=== PATIENT | female | born 1950 | race Caucasian/White ===

== ENCOUNTER → 2018-04-11 | Outpatient (REF) | payer MEDICARE ==
[~2018-04-11] MED LIST: BP MED; NEXIUM40 MG PO
== END | disposition home or self-care (01) ==
LOC: STRESS 13:15 → NUCMED 13:30
PROVIDERS: ATTEND Internal Medicine
DX: I20.9 Angina pectoris, unspecified (principal); R06.02 Shortness of breath; R00.2 Palpitations; R94.31 Abnormal electrocardiogram [ECG] [EKG]
CPT/HCPCS: A9502; J2785

== ENCOUNTER → 2018-05-04 | Outpatient (REF) | payer MEDICARE ==
[2018-05-04 08:01] LABS: ACT PARTIAL THROMBO TIME 25.8 SECONDS (20.0-32.5); INTERNATIONAL NORMALIZED RATIO 0.9 RATIO (0.7-1.3); PROTHROMBIN TIME 9.8 SECONDS (9.0-12.5)
[2018-05-04 08:20] LABS: HEMATOCRIT 38.8 % (37.0-47.0); HEMOGLOBIN 12.6 g/dl (12.0-16.0); IMMATURE GRANULOCYTES 0.3 % (0.0-5.0); MEAN CORPUSCULAR HGB 28.9 pG CALC (26.0-32.0); MEAN CORPUSCULAR HGB CONC 32.5 g/L CALC (32.0-36.0); NEUT# 3.56 thou/uL (2.00-7.15); RED BLOOD COUNT 4.36 mill/uL (4.20-5.60); RED CELL DISTRI WIDTH 12.8 % (11.5-15.5)
[2018-05-04 08:40] LABS: ALBUMIN 4.1 g/dL (3.2-5.0); ALKALINE PHOSPHATASE 65 u/l (38-126); ANION GAP 11 (6-22 (CALC)); BILIRUBIN, TOTAL 0.6 mg/dL (0.0-1.4); BUN 24 mg/dL (8-23); BUN/CREATININE RATIO 35 (12-20 (CALC)); CARBON DIOXIDE 30 mmol/l (22-30); CHLORIDE 102 mmol/l (95-108); CREATININE 0.7 mg/dL (0.5-1.0); GFR > 60 ML/MIN (>=60 (CALC)); GFR FOR AFR.AMER. > 60 ML/MIN (>=60 (CALC)); POTASSIUM 4.2 mmol/l (3.5-5.1); SGOT/AST 29 u/l (9-36); SODIUM 139 mmol/l (137-146); TOTAL PROTEIN 6.9 g/dL (6.3-8.2)
== END | disposition home or self-care (01) ==
LOC: LAB 07:09
PROVIDERS: ATTEND Internal Medicine
DX: I48.2 Chronic atrial fibrillation (principal); I20.8 Other forms of angina pectoris

== ENCOUNTER 2021-08-06 07:58 | Emergency (ER) | payer MEDICARE ==
[~2021-08-06] VITALS: Ht 165.1 cm; Wt 109.7 kg
[2021-08-06] MEDS ORDERED: TRAMADOL HYDROC50 M1 PO (08:35)
[2021-08-06 08:40] LABS: HEMATOCRIT 37.7 % (37.0-47.0); HEMOGLOBIN 12.5 g/dl (12.0-16.0); IMMATURE GRANULOCYTES 0.2 % (0.0-5.0); MEAN CELL VOLUME 87.5 fL CALC (80.0-100.0); MEAN CORPUSCULAR HGB CONC 33.2 g/dL CAL (32.0-36.0); NEUT# 4.04 thou/uL (2.00-7.15); RED BLOOD COUNT 4.31 mill/uL (4.20-5.60)
[2021-08-06 08:59] LABS: ALBUMIN 3.9 g/dL (3.2-5.0); ALKALINE PHOSPHATASE 78 u/l (38-126); ANION GAP 10 (6-22 (CALC)); BILIRUBIN, TOTAL 0.4 mg/dL (0.0-1.4); BUN 14 mg/dL (8-23); BUN/CREATININE RATIO 23 (12-20 (CALC)); CARBON DIOXIDE 28 mmol/l (22-30); CHLORIDE 102 mmol/l (95-108); CREATININE 0.6 mg/dL (0.5-1.0); GFR FOR AFR.AMER. > 60 ML/MIN (>=60 (CALC)); GFR OTHER RACES > 60 ML/MIN (>=60 (CALC)); SGOT/AST 19 u/l (9-36); SODIUM 136 mmol/l (137-146); TOTAL PROTEIN 6.7 g/dL (6.3-8.2)
[2021-08-06] MEDS ORDERED: NORVASC PO (09:34)
[2021-08-06 09:52] VITALS: BP 156/78
== END 2021-08-06 09:55 | disposition home or self-care (01) ==
LOC: ED 07:58
PROVIDERS: Internal Medicine
DX: I10 Essential (primary) hypertension (principal)

== ENCOUNTER 2023-09-26 16:04 | Observation (INO) | payer MEDICARE ==
[~2023-09-26] VITALS: Ht 165.1 cm; Wt 117.9 kg
[2023-09-26] VITALS (26 sets, daily range): BP systolic 131–188; BP diastolic 63–112
[~2023-09-26 16:04] MED LIST changes: +NORVASC PO; +TRAMADOL HYDROC50 M1 PO
--- NOTE | 2023-09-26 16:12 | NUR ---
PATIENT TO ROOM 15 VIA WHEELCHAIR
[2023-09-26] MEDS ORDERED: DILTIAZEM HCL 125 MG in SODIUM CHLORIDE 0.9% 100 ML IV ONE (16:25)
[2023-09-26] MEDS ORDERED: DILTIAZEM HCL 25 MG/5 ML SDV IV ONE (16:25)
[2023-09-26] MEDS ORDERED: SODIUM CHLORIDE 0.9% 500 ML IV ONE ×2 (16:25→19:05)
[2023-09-26 16:42] LABS: BASO% 0.5 % (0-3); EOS% 1.5 % (0-8); HEMATOCRIT 35.6 % (37.0-47.0); HEMOGLOBIN 11.3 g/dl (12.0-16.0); IMMATURE GRANULOCYTES 0.1 % (0.0-5.0); LYMPH% 24.5 % (15-41); MEAN CELL VOLUME 80.4 fL CALC (80.0-100.0); MEAN CORPUSCULAR HGB 25.5 pG CALC (26.0-32.0); MEAN CORPUSCULAR HGB CONC 31.7 g/dL CAL (32.0-36.0); MONO% 5.6 % (2-13); NEUT# 5.33 thou/uL (2.00-7.15); NEUT% 67.8 % (42-76); RED BLOOD COUNT 4.43 mill/uL (4.20-5.60); RED CELL DISTRI WIDTH 14.3 % (11.5-15.5)
[2023-09-26 16:53] LABS: ALKALINE PHOSPHATASE 83 u/l (38-126); BILIRUBIN, TOTAL 0.5 mg/dL (0.02-1.3); BUN 20 mg/dL (8-23); BUN/CREATININE RATIO 20 (12-20 (CALC)); CHLORIDE 108 mmol/l (95-108); ESTIMATED GFR 59 ML/MIN (>=90 (CALC)); SGOT/AST 23 u/l (9-36); SODIUM 141 mmol/l (137-146); TOTAL PROTEIN 7.8 g/dL (6.3-8.2)
[2023-09-26 16:58] LABS: ALBUMIN 4.6 g/dL (3.2-5.0); ANION GAP 13 (6-22 (CALC)); CARBON DIOXIDE 24 mmol/l (22-30)
[2023-09-26 17:24] LABS: TSH, 3RD GENERATION 0.93 uIU/mL (0.47 - 4.68)
--- NOTE | 2023-09-26 17:45 | NUR ---
cardizem incrased to 15 mg
[2023-09-26] MEDS ORDERED: ENOXAPARIN SODIUM 100 MG/ML SYR SC ONE (18:30)
[2023-09-26] MEDS ORDERED: SODIUM CHLORIDE 0.9% 1,000 ML IV PRN (18:55)
[2023-09-26] MEDS ORDERED: MAGNESIUM HYDROXIDE 30 ML UDC PO PRN (18:55)
[2023-09-26] MEDS ORDERED: ACETAMINOPHEN 325 MG/TAB PO PRN (18:55)
[2023-09-26] MEDS ORDERED: HYDROcodone 5 MG/Acetaminophen 325 MG/COMBO PO PRN (19:00)
--- NOTE | 2023-09-26 19:00 | NUR ---
report recieved in person from travel PAYROLL MASTERGUERA Coelho. pt on cardizem 15mg/hr on streatcher. working to obtain a bed for pt who will be housed in ED15 tonight and a dinner. supervision contacted.
[2023-09-26] MEDS ORDERED: DILTIAZEM HCL 125 MG in SODIUM CHLORIDE 0.9% 100 ML IV PRN (19:05)
--- NOTE | 2023-09-26 19:05 | NUR ---
report given to [facility] nurse
[2023-09-26] MEDS ORDERED: VITAMIN D-32000 UNI1 PO (19:11)
[2023-09-26] MEDS ORDERED: MYRBETRIQ25 MG PO (19:12)
[2023-09-26] MEDS ORDERED: SLOW-MAG PO (19:57)
[2023-09-26] MEDS ORDERED: VITAMIN C500 M6 PO (19:57)
[2023-09-26] MEDS ORDERED: LORTAB 5/3255 MG PO ×2 (19:59→20:03)
[2023-09-26] MEDS ORDERED: CYANOCOBAL1000 MCG/M IM (20:00)
[2023-09-26] MEDS ORDERED: COZAAR25 MG PO (20:00)
[2023-09-26] MEDS ORDERED: BENZONATATE200 MG PO (20:01)
[2023-09-26] MEDS ORDERED: AMLODIPINE BESY10 MG PO (20:01)
[2023-09-26] MEDS ORDERED: METOPROLOL TARTRATE 50 MG/TAB PO SCH (21:00)
--- NOTE | 2023-09-26 22:00 | NUR ---
pt assessed and assisted to bed pt was able to stand with steady gait,pt reports feeling SOB with actuivity. pt given all clean linens callbell at [facility] bed alarm on , dinner provided.and water.
--- NOTE | 2023-09-26 23:13 | NUR ---
pt sats 88-90 felt SOB , addedd 2 l of O2 pt states was havving issues catching her breath.pt states oxtgen helped.
--- NOTE | 2023-09-26 23:26 | NUR ---
pt assisted to bedside commode standby assistance, new adrian pad given for urinary incontinence.
--- NOTE | 2023-09-26 23:40 | NUR ---
132/79 HR 83 pt titrated down to 5.0 mg/hr on cardizem and noted in the titration TAB. 2L o2. call price at side all monitors on ,pilot plant technician Preet made aware of dose change and to be aware and let RN know of any increases or changes in HR. all needs met , lights dimmed pt watching TV water at bedside . pt vopided 100 cc and had a wet adrian pad. new pad provided. pt yunior and dry .
[2023-09-27] VITALS (14 sets, daily range): BP systolic 112–147; BP diastolic 51–92
--- NOTE | 2023-09-27 00:18 | NUR ---
pt converted to NSRat 0006. strip posted to the chart and current NSR of HR 65 posted to chart. and paper strip in chart. pt reports feeling better. allneeds met. call geovanny farley.
--- NOTE | 2023-09-27 02:00 | NUR ---
pt rounded on , HR NSR no ectopy seen on Rhythem strip. HR 68 BP 123/68.Pt resting comfortably. call price within reach. all safety measures in placean monitors on . 2L NC.
--- NOTE | 2023-09-27 04:00 | NUR ---
pt assisted to the bedside commode standby only. pt changed her adrian pad for urine incontinece and urinated 100 cc on bedside commode , urine documented in I and Os. pt asked if she had paina dn offered percocet.Pt stated she morse snot have pain . pt educated gher order is percocet Q6 hrs. Pt stated she is feeling better. Pts left subclavian port was flushed aseptically, and cardizem line which has been off since 0020 disconnected. NSR HR 69 Bp has improved with earlier metoprolol as well. Pt educated again as earlier she will have an ECO today. Pt assisted back to bed. lights off comfort given pt educated to call again for assistance if needed. call price at bedisde. 2L nc. pt educate she will more than likely not need o2 int eh am when awake. all needs met. warm pink well perfused adn afebrile.
[2023-09-27 05:55] LABS: BASO% 0.6 % (0-3); EOS% 1.1 % (0-8); HEMATOCRIT 32.6 % (37.0-47.0); HEMOGLOBIN 10.2 g/dl (12.0-16.0); IMMATURE GRANULOCYTES 0.1 % (0.0-5.0); LYMPH% 25.6 % (15-41); MEAN CELL VOLUME 80.9 fL CALC (80.0-100.0); MEAN CORPUSCULAR HGB 25.3 pG CALC (26.0-32.0); MEAN CORPUSCULAR HGB CONC 31.3 g/dL CAL (32.0-36.0); MONO% 4.2 % (2-13); NEUT# 4.82 thou/uL (2.00-7.15); NEUT% 68.4 % (42-76); RED BLOOD COUNT 4.03 mill/uL (4.20-5.60); RED CELL DISTRI WIDTH 14.1 % (11.5-15.5)
[2023-09-27 06:13] LABS: BILIRUBIN, TOTAL 0.6 mg/dL (0.02-1.3); CHOLESTEROL HDL RATIO 3.5 (<4.4 (CALC)); CREATININE 0.8 mg/dL (0.5-1.0); MAGNESIUM 2.1 mg/dL (1.6-2.3); POTASSIUM 4.3 mmol/l (3.5-5.1)
[2023-09-27 06:14] LABS: ALBUMIN 3.5 g/dL (3.2-5.0); TOTAL PROTEIN 5.9 g/dL (6.3-8.2)
--- NOTE | 2023-09-27 06:30 | NUR ---
rounded on pt sleeping comfortably.paged RT ,she stated should will get EKG soon. pt NSR no distress. call price within reach water within reach. all needs met .
--- NOTE | 2023-09-27 07:15 | NUR ---
Report received from hemodialysis charge nurse nurse. Patient is sitting on side of bed, denies any pain at this time. A&Ox4, on 2L NC and tolerating. Patient is now NSR on tele monitor. Cardizem drip has been stopped. VS WNL. All needs addressed at this time, call light within reach.
--- NOTE | 2023-09-27 08:45 | NUR ---
Dr Geronimo at bedside. Plan to consult cardiology to see if they want further testing.
--- NOTE | 2023-09-27 08:54 | NUR ---
CONTACTED DR LORENZO'S OFFICE IN REFERENCE TO A CARDIOLOGY CONSULT. I SPOKE WITH OSMEL AT 0854 HRS.
[2023-09-27] MEDS ORDERED: APIXABAN BASE 5 MG TAB PO SCH (09:00)
[2023-09-27] MEDS ORDERED: APIXABAN BASE 2.5 MG/TAB TAB PO SCH (09:00)
[2023-09-27] MEDS ORDERED: LOSARTAN Potassium 25 MG/TAB PO SCH (09:30)
--- NOTE | 2023-09-27 10:00 | NUR ---
Patient is resting in bed, denies any pain. A&Ox4, on 2L NC and tolerating. Currently NSR on tele monitor. VS WNL. All needs addressed at this time, call light within reach.
--- NOTE | 2023-09-27 10:54 | NUR ---
Report called to Edu
--- NOTE | 2023-09-27 10:55 | NUR ---
Report called to Jeanne on [facility], patient is going into room 279. Cardiology WAREHOUSE HELPER and family currently at bedside.
--- NOTE | 2023-09-27 11:24 | NUR ---
PATIENT ARRIVED FROM ED TO [place] VIA WHEELCHAIR; ROOM AIR; BREATHING UNLABORED AND EVEN; DENIED ANY PAIN; DENIED ANY N/D/V AT THIS TIEM; BSC WAS PLACED NEAR BED; PORT WAS CLEAN AND INTAT SALINE LOCKED WITH NO ISSUES.; TELE LEADS ARE ATTACHED AND WORKING WITH NO ISSUES; PERSONAL BELONGINGS IN CLOSET; CALL LIGHT WAS GIVEN; PATIENT VERBALIZED UNDERSTANDING ON HOW TO USE, BED IN LOWEST POSTION; NO COMPLAINTS AT THIS TIME
--- NOTE | 2023-09-27 16:00 | NUR ---
patient a/o x3; room air; breathing unlabored and even; denied any pain; denied any n/d/v at this time; patient laying low semi folwer in bed; iv site is located on left chest port saline locked with no issues; tele leads are attached and wroking with no issues; bsc next to bed; nio s/s of distress at this time; call light within reach,verbalized understanding on how to use, personal itesm within reach, bed in lowest postion; no complaints at this time
--- NOTE | 2023-09-27 20:00 | NUR ---
pt was havung A FEW RUNS OF IRREGULAR BEATS Hr RATE WAS 112-122. FOR A FEW MINUTES PT SPONTAENEOUSLY BROKE to NSR 76-78 beats per minute. . pm meds given metoprolol etc. pt said she felt a breif increase in HR but no SOB pt was in bed at the time. Pt has chronic RA and medicated for pain also.
[2023-09-28] VITALS: BP 157/92
--- NOTE | 2023-09-28 | NUR ---
pt assessed, rounded on resting comfortbaly, all needs met on electronic device monitor , call price within reach.
[2023-09-28 00:03] VITALS: BP 157/92
[2023-09-28 04:00] VITALS: BP 162/91
--- NOTE | 2023-09-28 04:00 | NUR ---
pt rounded on brief , ST 120 then back to HR NSR 62, no signs or symptoms, no SOB resting comfortably. call bellwithin reach.
[2023-09-28 05:02] LABS: BASO% 0.6 % (0-3); EOS% 2.8 % (0-8); HEMATOCRIT 35.2 % (37.0-47.0); IMMATURE GRANULOCYTES 0.4 % (0.0-5.0); LYMPH% 32.3 % (15-41); MEAN CELL VOLUME 81.1 fL CALC (80.0-100.0); MEAN CORPUSCULAR HGB 25.3 pG CALC (26.0-32.0); MEAN CORPUSCULAR HGB CONC 31.3 g/dL CAL (32.0-36.0); MONO% 5.5 % (2-13); NEUT# 2.96 thou/uL (2.00-7.15); NEUT% 58.4 % (42-76); RED BLOOD COUNT 4.34 mill/uL (4.20-5.60)
[2023-09-28 05:06] LABS: ALBUMIN 3.8 g/dL (3.2-5.0); BILIRUBIN, TOTAL 0.4 mg/dL (0.02-1.3); CREATININE 0.8 mg/dL (0.5-1.0); MAGNESIUM 2.3 mg/dL (1.6-2.3); POTASSIUM 4.2 mmol/l (3.5-5.1); TOTAL PROTEIN 6.4 g/dL (6.3-8.2)
[2023-09-28 05:07] VITALS: BP 162/91
[2023-09-28 06:56] VITALS: BP 141/61
[2023-09-28] MEDS ORDERED: METOPROLOL SUCC50 MG PO (06:56)
[2023-09-28] MEDS ORDERED: ELIQUIS5 MG PO (06:57)
--- NOTE | 2023-09-28 07:30 | NUR ---
Report received from scene shifter nurse. Patient is resting in bed, denies any pain. On room air, NSR on tele monitor. All needs addressed at this time, call light within reach.
[2023-09-28 08:30] VITALS: BP 141/61
[2023-09-28] MEDS ORDERED: amLODIPine BESYLATE 5 MG/TAB PO SCH (09:00)
--- NOTE | 2023-09-28 11:02 | NUR ---
Discharge instructions given. Patient verbalizes understanding of all discharge instructions, all questions answered. Discharged in stable condition via Wheelchair to Home with staff. All belongings sent with pt. IV removed.
[2023-09-28] MEDS ORDERED: COZAAR100 MG PO (11:52)
[2023-09-28] MEDS ORDERED: LOSARTAN POTASS25 MG PO (11:53)
== END 2023-09-28 11:07 | disposition home or self-care (01) ==
LOC: ED 16:04 → ED-I 17:30 → ED 18:29 → ED-I 18:30 → MS2 09-27 11:20
PROVIDERS: Family Medicine; ADMIT Student in an Organized Health Care Education/Training Program; ATTEND Student in an Organized Health Care Education/Training Program
DX: I48.91 Unspecified atrial fibrillation (principal); I10 Essential (primary) hypertension; I25.10 Atherosclerotic heart disease of native coronary artery without angina pectoris; D64.9 Anemia, unspecified; I08.1 Rheumatic disorders of both mitral and tricuspid valves; M79.7 Fibromyalgia; E66.9 Obesity, unspecified; M06.9 Rheumatoid arthritis, unspecified; Z85.3 Personal history of malignant neoplasm of breast; Z90.13 Acquired absence of bilateral breasts and nipples; Z92.21 Personal history of antineoplastic chemotherapy; Z95.828 Presence of other vascular implants and grafts; Z20.822 Contact with and (suspected) exposure to COVID-19
CPT/HCPCS: J1650